=== PATIENT | female | born 1990 | race Caucasian/White ===

== ENCOUNTER 2023-06-27 16:08 | Outpatient (CLI) | payer MEDICAID, SELFPAY | END 2023-06-27 16:09 | disposition home or self-care (01) | PROVIDERS: Visit Provider Family Medicine | DX: R06.09 Other forms of dyspnea (principal); T50.905A Adverse effect of unspecified drugs, medicaments and biological substances, initial encounter | CPT/HCPCS: A0425; A0427 ==

== ENCOUNTER 2023-06-28 10:18 | Outpatient (CLI) | payer MEDICAID, SELFPAY | END 2023-06-28 10:19 | disposition home or self-care (01) | PROVIDERS: Visit Provider Emergency Medicine | DX: R06.09 Other forms of dyspnea (principal); T38.0X5A Adverse effect of glucocorticoids and synthetic analogues, initial encounter | CPT/HCPCS: A0425; A0427 ==

== ENCOUNTER 2024-12-21 21:11 | Outpatient (CLI) | payer MEDICAID, SELFPAY | END 2024-12-21 21:12 | disposition home or self-care (01) | LOC: AMB 12-22 11:28 | PROVIDERS: Visit Provider Family Medicine | DX: R07.89 Other chest pain (principal); I49.9 Cardiac arrhythmia, unspecified | CPT/HCPCS: A0998 ==